=== PATIENT | female | born 1940 | race Caucasian/White ===

== ENCOUNTER 2016-07-11 13:01 | Outpatient (RCR) | payer MEDICARE ==
[~2016-07-11] VITALS: Ht 170.2 cm; Wt 111.6 kg
[2016-07-14] MEDS ORDERED: Neosporin Oint 15gm TOPIC ONE (13:45)
[2016-07-14] MEDS ORDERED: Lidocaine 4% Top Soln 50ml TOPIC ONE (13:45)
[2016-07-20] MEDS ORDERED: Lidocaine HCl 2% Jelly 5ml Tube TOPIC ONE (16:45)
[2016-07-27] MEDS ORDERED: Lidocaine 4% Top Soln 50ml TOPIC ONE (16:30)
== END 2016-08-08 | disposition home or self-care (01) ==
LOC: WCC 13:01
DX: L97.821 Non-pressure chronic ulcer of other part of left lower leg limited to breakdown of skin (principal); R60.0 Localized edema; I73.89 Other specified peripheral vascular diseases; Z79.02 Long term (current) use of antithrombotics/antiplatelets; Z88.0 Allergy status to penicillin
CPT/HCPCS: 11043; 15271; G0463; Q4133

== ENCOUNTER 2016-08-29 13:58 | Outpatient (RCR) | payer MEDICARE | END 2016-09-05 | disposition home or self-care (01) | LOC: WCC 13:58 | DX: L97.821 Non-pressure chronic ulcer of other part of left lower leg limited to breakdown of skin (principal); R60.0 Localized edema; I73.89 Other specified peripheral vascular diseases; Z79.02 Long term (current) use of antithrombotics/antiplatelets; Z88.0 Allergy status to penicillin | CPT/HCPCS: 11043 ==

== ENCOUNTER 2016-09-19 13:22 | Outpatient (RCR) | payer MEDICARE | END 2016-10-06 | disposition home or self-care (01) | LOC: WCC 13:22 | DX: L97.821 Non-pressure chronic ulcer of other part of left lower leg limited to breakdown of skin (principal); R60.0 Localized edema; I73.89 Other specified peripheral vascular diseases; Z88.0 Allergy status to penicillin; C34.90 Malignant neoplasm of unspecified part of unspecified bronchus or lung; Z79.02 Long term (current) use of antithrombotics/antiplatelets | CPT/HCPCS: 11043 ==

== ENCOUNTER 2016-10-10 13:30 | Outpatient (RCR) | payer MEDICARE ==
[~2016-10-10] VITALS: Ht 170.2 cm; Wt 111.6 kg
[2016-11-02] MEDS ORDERED: Lidocaine HCl 2% Jelly 5ml Tube TOPIC ONE (11:30)
== END 2016-11-05 | disposition home or self-care (01) ==
LOC: WCC 13:30
DX: L97.821 Non-pressure chronic ulcer of other part of left lower leg limited to breakdown of skin (principal); R60.0 Localized edema; I73.89 Other specified peripheral vascular diseases; Z88.0 Allergy status to penicillin; M48.00 Spinal stenosis, site unspecified; M19.90 Unspecified osteoarthritis, unspecified site; K21.9 Gastro-esophageal reflux disease without esophagitis; Z85.118 Personal history of other malignant neoplasm of bronchus and lung; Z79.02 Long term (current) use of antithrombotics/antiplatelets
CPT/HCPCS: 11042; 11043

== ENCOUNTER 2016-11-07 12:58 | Outpatient (RCR) | payer MEDICARE | END 2016-12-06 | disposition home or self-care (01) | LOC: WCC 12:58 | DX: L97.821 Non-pressure chronic ulcer of other part of left lower leg limited to breakdown of skin (principal); R60.0 Localized edema; I73.89 Other specified peripheral vascular diseases; Z96.643 Presence of artificial hip joint, bilateral; M48.00 Spinal stenosis, site unspecified; K21.9 Gastro-esophageal reflux disease without esophagitis; Z85.118 Personal history of other malignant neoplasm of bronchus and lung; M19.90 Unspecified osteoarthritis, unspecified site; Z88.0 Allergy status to penicillin; Z79.02 Long term (current) use of antithrombotics/antiplatelets | CPT/HCPCS: 11042; G0463 ==

== ENCOUNTER 2016-12-12 13:30 | Outpatient (RCR) | payer MEDICARE | END 2017-01-05 | disposition home or self-care (01) | LOC: WCC 13:30 | DX: L97.821 Non-pressure chronic ulcer of other part of left lower leg limited to breakdown of skin (principal); R60.0 Localized edema; I73.89 Other specified peripheral vascular diseases; Z96.643 Presence of artificial hip joint, bilateral; Z90.710 Acquired absence of both cervix and uterus; K21.9 Gastro-esophageal reflux disease without esophagitis; Z85.118 Personal history of other malignant neoplasm of bronchus and lung; M19.90 Unspecified osteoarthritis, unspecified site; M48.00 Spinal stenosis, site unspecified; Z79.02 Long term (current) use of antithrombotics/antiplatelets | CPT/HCPCS: G0463 ==

== ENCOUNTER 2017-03-27 14:09 | Outpatient (RCR) | payer MEDICARE | END 2017-04-07 | disposition home or self-care (01) | LOC: WCC 14:09 | DX: S81.802D Unspecified open wound, left lower leg, subsequent encounter (principal); X58.XXXD Exposure to other specified factors, subsequent encounter; K21.9 Gastro-esophageal reflux disease without esophagitis; Z85.118 Personal history of other malignant neoplasm of bronchus and lung; M48.00 Spinal stenosis, site unspecified; F32.9 Major depressive disorder, single episode, unspecified; Z88.0 Allergy status to penicillin | CPT/HCPCS: 11043 ==

== ENCOUNTER 2017-04-10 15:00 | Outpatient (RCR) | payer MEDICARE | END 2017-05-08 | disposition home or self-care (01) | LOC: WCC 15:00 | DX: S81.802A Unspecified open wound, left lower leg, initial encounter (principal); L97.929 Non-pressure chronic ulcer of unspecified part of left lower leg with unspecified severity; Z96.643 Presence of artificial hip joint, bilateral; Z90.710 Acquired absence of both cervix and uterus; M48.00 Spinal stenosis, site unspecified; M19.90 Unspecified osteoarthritis, unspecified site; K21.9 Gastro-esophageal reflux disease without esophagitis; C34.90 Malignant neoplasm of unspecified part of unspecified bronchus or lung; F32.9 Major depressive disorder, single episode, unspecified; Z88.0 Allergy status to penicillin | CPT/HCPCS: 11043; 29580; 87070; 87181; 87205; G0463 ==

== ENCOUNTER 2017-05-15 13:38 | Outpatient (RCR) | payer MEDICARE ==
[~2017-05-15] VITALS: Ht 170.2 cm; Wt 111.6 kg
== END 2017-06-07 | disposition home or self-care (01) ==
LOC: WCC 13:38
DX: L97.821 Non-pressure chronic ulcer of other part of left lower leg limited to breakdown of skin (principal); R60.0 Localized edema; I70.242 Atherosclerosis of native arteries of left leg with ulceration of calf; Z88.0 Allergy status to penicillin; Z88.8 Allergy status to other drugs, medicaments and biological substances; Z82.49 Family history of ischemic heart disease and other diseases of the circulatory system; Z82.3 Family history of stroke; Z87.891 Personal history of nicotine dependence; M19.90 Unspecified osteoarthritis, unspecified site; F32.9 Major depressive disorder, single episode, unspecified; K21.9 Gastro-esophageal reflux disease without esophagitis; Z85.118 Personal history of other malignant neoplasm of bronchus and lung
CPT/HCPCS: 11043; G0463

== ENCOUNTER 2017-06-12 12:57 | Outpatient (RCR) | payer MEDICARE ==
--- NOTE | 2017-06-12 16:30 | Consultation ---
DATE OF CONSULTATION: 06/12/2017 INFECTIOUS DISEASE CONSULTATION CONSULTING PHYSICIAN: Merary Mckenzie M.D. REQUESTING PHYSICIAN: Pedro Luis Dickey D.P.M. REASON FOR CONSULTATION: Left leg chronic nonhealing arterial wounds, infected with methicillin-sensitive Staph aureus, failed Levaquin antibiotics treatment. Recommendation for antibiotics therapy and further care. HISTORY OF PRESENT ILLNESS: The patient is a 77-year-old female with significant vascular disease mainly left leg popliteal occlusion status post revascularization last year by vascular surgery, spinal stenosis, joint disease, osteoarthritis, depression, and lung cancer, on biological treatment developed left leg lateral wound, which has been since March. She had this wound previously when she had her popliteal artery occlusion, but it has improved since she had her revascularization procedure last year. Since March, her left leg wound has been getting bigger and has some yellowish exudate. Her skin seems to be red erythematous involving the whole legs mainly around the left leg wound area. She attributed to local Lysol chemical spray which she was exposed to couple of months ago. Denied any pain. No fever or chills. No significant drainage from the wound. She is able to walk and put full weight on her left leg. The patient had a wound culture recently, grew methicillin-sensitive Staph aureus and normal skin carmella, so she received Levaquin 500 mg for 10 days with no significant improvement in her wound, so for this reason, I was consulted by the authorization coordinator for antibiotics treatment and further management of her left leg wound infection. PAST MEDICAL HISTORY: Significant for spinal stenosis, vascular arterial disease, venous stasis, joint disease, osteoarthritis, depression, gastroesophageal reflux disease, and lung cancer. PAST SURGICAL HISTORY: She had revascularization of the left leg popliteal artery last year by vascular surgery. MEDICATIONS: The patient received Levaquin 500 mg once daily for 10 days. For the rest of her medications, please refer to MAR. ALLERGIES: She is allergic to penicillin with hives, rash, and significant sore throat. SOCIAL HISTORY: She is unemployed. Lives with family. Denied using any drugs, tobacco, or alcohol. FAMILY HISTORY: Not contributory. REVIEW OF SYSTEMS: A 14-point of system reviewed were all negative apart from the one I mentioned above in my History and Physical. PHYSICAL EXAMINATION: VITAL SIGNS: Reviewed and stable. GENERAL: An elderly female, lying in bed, awake, alert, oriented, obese, and not in distress. HEENT: Normocephalic and atraumatic. Pupils are reactive to light. Moist oral mucosa. No exudate or thrush. NECK: Supple. No lymphadenopathy. CARDIOVASCULAR: Regular rate and rhythm. No murmur or gallop. LUNGS: Clear bilaterally. No wheezing or rhonchi. Normal breathing efforts. ABDOMEN: Soft, obese, nontender, and nondistended. Positive bowel sounds. No hepatosplenomegaly or ascites. EXTREMITY: No edema or cyanosis. Left leg redness with left lateral side skin wound, full thickness, 3.6 x 2.6 x 0.2 cm depth. No undermining. Moderate amount of serosanguineous drainage noted. LABORATORY DATA: Laboratories are not available today. MICROBIOLOGY: Left leg wound culture grew MSSA with usual skin carmella. IMAGING: None done at this time. ASSESSMENT AND RECOMMENDATION: 1. Left leg nonhealing arterial wound, suspect due to poor circulation and significant arterial disease. I recommend vascular study with Doppler and possible revascularization to improve her chance of healing. Meanwhile, I will start the patient on oral clindamycin for 10 days until she get evaluated by vascular surgery. We will add fluconazole to cover for possible fungal infection since she has onychomycosis in both feet and evidence of skin fungal involvement. The patient understands that oral antibiotics may not improve her infection or heal her wound due to significant arterial disease and thus she gets vascular intervention done to restore the circulation. All side effects were explained and she agreed to proceed. 2. Significant peripheral vascular disease. Recommend vascular evaluation and revascularization if needed to improve her chance of recovery in the future. Thank you for the consultation. Infectious Disease will continue to follow. Please feel free to call with any question. Merary Mckenzie M.D. DR: DOM JOB#: [id number] CC:
--- NOTE | 2017-06-26 15:14 | Infectious Diseases Prog Note ---
Assessment/Plan Problems: (1) Peripheral vascular disease of lower extremity with ulceration Assessment & Plan: wound swab grew MSSA , patient was treated recently with Levaquin without benefit , she didn't take clindamycin as I prescribed due to side effects , arterial Doppler showed moderate to severe stenosis at the mid popliteal artery which is most likely the cause of her nonhealing wound , recommend arterial revascularization , and continuous wound care . D/W patient and at bed side (2) Peripheral vascular disease Assessment & Plan: at the left popliteal artery, recommend revascularization , and vascular surgery follow up Subjective Constitutional: Reports: no symptoms HEENT: Reports: no symptoms Respiratory: Reports: no symptoms Breasts: Reports: no symptoms Cardiovascular: Reports: no symptoms Gastrointestinal/Abdominal: Reports: diarrhea Genitourinary: Reports: no symptoms Neurologic: Reports: no symptoms Psychiatric: Reports: no symptoms Skin: Reports: ulcer Endocrine: Reports: no symptoms Hematologic: Reports: no symptoms Musculoskeletal: Reports: no symptoms Allergies: Coded Allergies: PENICILLINS (Verified Allergy, Unknown, 07/30/15) Objective General Appearance: WD/WN, no acute distress HEENT: normocephalic, atraumatic, anicteric, mucous membranes moist, PERRL Respiratory/Chest: chest wall non-tender, lungs clear, normal breath sounds, no respiratory distress, no accessory muscle use Cardiovascular: normal peripheral pulses, normal rate, regular rhythm, no gallop/murmur, no JVD Abdomen: normal bowel sounds, soft, non tender, no organomegaly, non distended , no mass, no scars Extremities: no cyanosis, no clubbing Skin: rash, ulcers, other - left lateral leg wound Neurologic/Psychiatric: alert, oriented x 3 Lymphatic: no neck adenopathy, no groin adenopathy Musculoskeletal: normal muscle bulk Merary Mckenzie M.D. Jun 26, 2017 15:14
== END 2017-07-08 | disposition home or self-care (01) ==
LOC: WCC 12:57
DX: L97.821 Non-pressure chronic ulcer of other part of left lower leg limited to breakdown of skin (principal); R60.0 Localized edema; I70.242 Atherosclerosis of native arteries of left leg with ulceration of calf; Z96.643 Presence of artificial hip joint, bilateral; Z90.710 Acquired absence of both cervix and uterus; Z85.118 Personal history of other malignant neoplasm of bronchus and lung; K21.9 Gastro-esophageal reflux disease without esophagitis; F32.9 Major depressive disorder, single episode, unspecified; M19.90 Unspecified osteoarthritis, unspecified site; Z79.02 Long term (current) use of antithrombotics/antiplatelets
CPT/HCPCS: G0463 ×3

== ENCOUNTER 2017-07-24 13:17 | Outpatient (RCR) | payer MEDICARE ==
[~2017-07-24] VITALS: Ht 170.2 cm; Wt 111.6 kg
[2017-08-02] MEDS ORDERED: Lidocaine 4% Top Soln 50ml TOPIC ONE (15:01)
== END 2017-08-08 | disposition home or self-care (01) ==
LOC: WCC 13:17
DX: L97.821 Non-pressure chronic ulcer of other part of left lower leg limited to breakdown of skin (principal); R60.0 Localized edema; I70.242 Atherosclerosis of native arteries of left leg with ulceration of calf; K21.9 Gastro-esophageal reflux disease without esophagitis; F32.9 Major depressive disorder, single episode, unspecified; Z85.118 Personal history of other malignant neoplasm of bronchus and lung; Z96.643 Presence of artificial hip joint, bilateral; Z90.710 Acquired absence of both cervix and uterus; Z87.891 Personal history of nicotine dependence; Z88.0 Allergy status to penicillin; Z88.8 Allergy status to other drugs, medicaments and biological substances; Z79.02 Long term (current) use of antithrombotics/antiplatelets
CPT/HCPCS: G0463

== ENCOUNTER 2017-08-09 12:49 | Outpatient (RCR) | payer MEDICARE | END 2017-09-05 | disposition home or self-care (01) | LOC: WCC 12:49 | DX: L97.821 Non-pressure chronic ulcer of other part of left lower leg limited to breakdown of skin (principal); R60.0 Localized edema; I70.242 Atherosclerosis of native arteries of left leg with ulceration of calf; Z88.0 Allergy status to penicillin; Z88.8 Allergy status to other drugs, medicaments and biological substances; Z96.643 Presence of artificial hip joint, bilateral; Z90.710 Acquired absence of both cervix and uterus; M19.90 Unspecified osteoarthritis, unspecified site; F32.9 Major depressive disorder, single episode, unspecified; K21.9 Gastro-esophageal reflux disease without esophagitis; Z85.118 Personal history of other malignant neoplasm of bronchus and lung; M48.00 Spinal stenosis, site unspecified; Z79.02 Long term (current) use of antithrombotics/antiplatelets | CPT/HCPCS: 11043; 11046; 87070; 87205; G0463 ==

== ENCOUNTER 2017-09-11 13:09 | Outpatient (RCR) | payer MEDICARE ==
[~2017-09-11] VITALS: Ht 170.2 cm; Wt 111.6 kg
== END 2017-10-06 | disposition home or self-care (01) ==
LOC: WCC 13:09
DX: L97.821 Non-pressure chronic ulcer of other part of left lower leg limited to breakdown of skin (principal); R60.0 Localized edema; I70.242 Atherosclerosis of native arteries of left leg with ulceration of calf; L03.116 Cellulitis of left lower limb; Z96.643 Presence of artificial hip joint, bilateral; Z90.710 Acquired absence of both cervix and uterus; Z87.891 Personal history of nicotine dependence; F32.9 Major depressive disorder, single episode, unspecified; Z85.118 Personal history of other malignant neoplasm of bronchus and lung; M48.00 Spinal stenosis, site unspecified; Z79.02 Long term (current) use of antithrombotics/antiplatelets
CPT/HCPCS: 11043; 11046; 15002; 15271; 15272; 87070; 87181; 87205; Q4106; Q4101

== ENCOUNTER 2017-10-09 10:57 | Outpatient (RCR) | payer MEDICARE ==
[~2017-10-09] VITALS: Ht 165.1 cm; Wt 113.4 kg
[2017-10-18] MEDS ORDERED: Lidocaine 4% Top Soln 50ml TOPIC ONE (11:30)
== END 2017-11-05 | disposition home or self-care (01) ==
LOC: WCC 10:57
DX: L97.821 Non-pressure chronic ulcer of other part of left lower leg limited to breakdown of skin (principal); R60.0 Localized edema; I70.242 Atherosclerosis of native arteries of left leg with ulceration of calf; Z88.0 Allergy status to penicillin; Z88.8 Allergy status to other drugs, medicaments and biological substances; Z90.710 Acquired absence of both cervix and uterus; Z96.643 Presence of artificial hip joint, bilateral; K21.9 Gastro-esophageal reflux disease without esophagitis; Z85.118 Personal history of other malignant neoplasm of bronchus and lung; F32.9 Major depressive disorder, single episode, unspecified; M19.90 Unspecified osteoarthritis, unspecified site; Z79.02 Long term (current) use of antithrombotics/antiplatelets
CPT/HCPCS: 11043; 11046; 87070; 87181; 87205

== ENCOUNTER 2017-11-06 10:10 | Outpatient (RCR) | payer MEDICARE ==
[~2017-11-06] VITALS: Ht 170.2 cm; Wt 111.6 kg
[2017-11-22] MEDS ORDERED: Lidocaine 4% Top Soln 50ml TOPIC ONE (16:45)
== END 2017-12-06 | disposition home or self-care (01) ==
LOC: WCC 10:10
DX: L97.821 Non-pressure chronic ulcer of other part of left lower leg limited to breakdown of skin (principal); R60.0 Localized edema; I70.242 Atherosclerosis of native arteries of left leg with ulceration of calf; Z96.643 Presence of artificial hip joint, bilateral; Z90.710 Acquired absence of both cervix and uterus; K21.9 Gastro-esophageal reflux disease without esophagitis; Z85.118 Personal history of other malignant neoplasm of bronchus and lung; F32.9 Major depressive disorder, single episode, unspecified; Z87.891 Personal history of nicotine dependence; Z79.02 Long term (current) use of antithrombotics/antiplatelets; Z88.0 Allergy status to penicillin
CPT/HCPCS: 11043; 11046

== ENCOUNTER 2018-01-08 12:56 | Outpatient (RCR) | payer MEDICARE ==
[~2018-01-08] VITALS: Ht 193 cm; Wt 113.4 kg
[2018-02-05] MEDS ORDERED: Lidocaine 4% Top Soln 50ml TOPIC ONE (17:30)
== END 2018-02-05 | disposition home or self-care (01) ==
LOC: WCC 12:56
DX: L97.821 Non-pressure chronic ulcer of other part of left lower leg limited to breakdown of skin (principal); R60.0 Localized edema; I70.242 Atherosclerosis of native arteries of left leg with ulceration of calf; Z88.0 Allergy status to penicillin; Z88.8 Allergy status to other drugs, medicaments and biological substances; Z87.891 Personal history of nicotine dependence; M19.90 Unspecified osteoarthritis, unspecified site; F32.9 Major depressive disorder, single episode, unspecified; K21.9 Gastro-esophageal reflux disease without esophagitis; Z85.118 Personal history of other malignant neoplasm of bronchus and lung; Z96.643 Presence of artificial hip joint, bilateral; Z90.710 Acquired absence of both cervix and uterus; Z79.02 Long term (current) use of antithrombotics/antiplatelets
CPT/HCPCS: 11043; 11046; 15271; Q4132

== ENCOUNTER 2018-02-07 15:40 | Outpatient (RCR) | payer MEDICARE | END 2018-03-08 | disposition home or self-care (01) | LOC: WCC 15:40 | DX: L97.821 Non-pressure chronic ulcer of other part of left lower leg limited to breakdown of skin (principal); R60.0 Localized edema; I70.242 Atherosclerosis of native arteries of left leg with ulceration of calf; K21.9 Gastro-esophageal reflux disease without esophagitis; Z85.118 Personal history of other malignant neoplasm of bronchus and lung; F32.9 Major depressive disorder, single episode, unspecified; Z96.643 Presence of artificial hip joint, bilateral; Z90.710 Acquired absence of both cervix and uterus; Z87.891 Personal history of nicotine dependence; Z79.02 Long term (current) use of antithrombotics/antiplatelets | CPT/HCPCS: 11043; 11046 ==

== ENCOUNTER 2018-03-12 14:05 | Outpatient (RCR) | payer MEDICARE ==
[~2018-03-12] VITALS: Ht 193 cm; Wt 113.4 kg
== END 2018-04-07 | disposition home or self-care (01) ==
LOC: WCC 14:05
DX: L97.821 Non-pressure chronic ulcer of other part of left lower leg limited to breakdown of skin (principal); R60.0 Localized edema; I70.242 Atherosclerosis of native arteries of left leg with ulceration of calf; Z85.118 Personal history of other malignant neoplasm of bronchus and lung; M19.90 Unspecified osteoarthritis, unspecified site; Z87.891 Personal history of nicotine dependence; Z96.643 Presence of artificial hip joint, bilateral; Z90.710 Acquired absence of both cervix and uterus
CPT/HCPCS: 11043; 11046; 15271; Q4131; Q4133

== ENCOUNTER 2018-04-09 13:32 | Outpatient (RCR) | payer MEDICARE | END 2018-05-08 | disposition home or self-care (01) | LOC: WCC 13:32 | DX: L97.821 Non-pressure chronic ulcer of other part of left lower leg limited to breakdown of skin (principal); R60.0 Localized edema; I70.242 Atherosclerosis of native arteries of left leg with ulceration of calf; L03.116 Cellulitis of left lower limb; Z88.0 Allergy status to penicillin; Z96.643 Presence of artificial hip joint, bilateral; Z90.710 Acquired absence of both cervix and uterus; K21.9 Gastro-esophageal reflux disease without esophagitis; F32.9 Major depressive disorder, single episode, unspecified; Z85.118 Personal history of other malignant neoplasm of bronchus and lung; M19.90 Unspecified osteoarthritis, unspecified site; Z79.01 Long term (current) use of anticoagulants | CPT/HCPCS: 11043; 11046; G0463 ==

== ENCOUNTER 2018-05-14 12:42 | Outpatient (RCR) | payer MEDICARE ==
[~2018-05-14] VITALS: Ht 193 cm; Wt 113.4 kg
[2018-05-29] MEDS ORDERED: Lidocaine 4% Top Soln 50ml TOPIC ONE (11:00)
== END 2018-06-07 | disposition home or self-care (01) ==
LOC: WCC 12:42
DX: L97.821 Non-pressure chronic ulcer of other part of left lower leg limited to breakdown of skin (principal); R60.0 Localized edema; I70.242 Atherosclerosis of native arteries of left leg with ulceration of calf; Z88.0 Allergy status to penicillin; Z88.8 Allergy status to other drugs, medicaments and biological substances; Z96.643 Presence of artificial hip joint, bilateral; Z90.710 Acquired absence of both cervix and uterus; K21.9 Gastro-esophageal reflux disease without esophagitis; F32.9 Major depressive disorder, single episode, unspecified; M19.90 Unspecified osteoarthritis, unspecified site; Z85.118 Personal history of other malignant neoplasm of bronchus and lung; Z79.01 Long term (current) use of anticoagulants
CPT/HCPCS: 11043; 11046; 15271; 15272; Q4106; Q4101

== ENCOUNTER 2018-06-11 13:32 | Outpatient (RCR) | payer MEDICARE ==
[~2018-06-11] VITALS: Ht 193 cm; Wt 113.4 kg
== END 2018-07-08 | disposition home or self-care (01) ==
LOC: WCC 13:32
DX: L97.821 Non-pressure chronic ulcer of other part of left lower leg limited to breakdown of skin (principal); R60.0 Localized edema; I70.242 Atherosclerosis of native arteries of left leg with ulceration of calf; Z88.0 Allergy status to penicillin; Z96.643 Presence of artificial hip joint, bilateral; Z90.710 Acquired absence of both cervix and uterus; K21.9 Gastro-esophageal reflux disease without esophagitis; Z85.118 Personal history of other malignant neoplasm of bronchus and lung; F32.9 Major depressive disorder, single episode, unspecified; M19.90 Unspecified osteoarthritis, unspecified site; Z79.01 Long term (current) use of anticoagulants
CPT/HCPCS: 11043; 11046; 87070; 87181; 87205; G0463

== ENCOUNTER 2018-07-16 13:55 | Outpatient (RCR) | payer MEDICARE ==
[~2018-07-16] VITALS: Ht 193 cm; Wt 113.4 kg
[2018-08-02] MEDS ORDERED: Neosporin Oint 15gm TOPIC ONE (09:15)
== END 2018-08-08 | disposition home or self-care (01) ==
LOC: WCC 13:55
DX: L97.821 Non-pressure chronic ulcer of other part of left lower leg limited to breakdown of skin (principal); R60.0 Localized edema; I70.242 Atherosclerosis of native arteries of left leg with ulceration of calf; L03.116 Cellulitis of left lower limb; Z96.643 Presence of artificial hip joint, bilateral; Z90.710 Acquired absence of both cervix and uterus; K21.9 Gastro-esophageal reflux disease without esophagitis; Z85.118 Personal history of other malignant neoplasm of bronchus and lung; M19.90 Unspecified osteoarthritis, unspecified site; F32.9 Major depressive disorder, single episode, unspecified; M48.00 Spinal stenosis, site unspecified
CPT/HCPCS: 15002; 15271; 15272; G0463; Q4106; Q4101

== ENCOUNTER 2018-08-13 13:15 | Outpatient (RCR) | payer MEDICARE ==
[~2018-08-13] VITALS: Ht 193 cm; Wt 113.4 kg
== END 2018-09-05 | disposition home or self-care (01) ==
LOC: WCC 13:15
DX: L97.821 Non-pressure chronic ulcer of other part of left lower leg limited to breakdown of skin (principal); R60.0 Localized edema; I70.242 Atherosclerosis of native arteries of left leg with ulceration of calf; Z96.643 Presence of artificial hip joint, bilateral; Z90.710 Acquired absence of both cervix and uterus; Z85.118 Personal history of other malignant neoplasm of bronchus and lung; K21.9 Gastro-esophageal reflux disease without esophagitis; F32.9 Major depressive disorder, single episode, unspecified; M19.90 Unspecified osteoarthritis, unspecified site; M48.00 Spinal stenosis, site unspecified; Z87.891 Personal history of nicotine dependence; Z88.0 Allergy status to penicillin; Z88.8 Allergy status to other drugs, medicaments and biological substances; Z79.01 Long term (current) use of anticoagulants
CPT/HCPCS: 11043; 15271; G0463; Q4106; Q4101

== ENCOUNTER 2018-09-17 13:15 | Outpatient (RCR) | payer MEDICARE | END 2018-10-06 | disposition home or self-care (01) | LOC: WCC 13:15 | DX: L97.821 Non-pressure chronic ulcer of other part of left lower leg limited to breakdown of skin (principal); R60.0 Localized edema; I70.242 Atherosclerosis of native arteries of left leg with ulceration of calf; K21.9 Gastro-esophageal reflux disease without esophagitis; F32.9 Major depressive disorder, single episode, unspecified; M19.90 Unspecified osteoarthritis, unspecified site; Z96.643 Presence of artificial hip joint, bilateral; Z90.710 Acquired absence of both cervix and uterus; Z87.891 Personal history of nicotine dependence; Z79.01 Long term (current) use of anticoagulants | CPT/HCPCS: 15271; G0463; Q4106; Q4101 ==

== ENCOUNTER 2018-10-08 13:12 | Outpatient (RCR) | payer MEDICARE ==
[~2018-10-08] VITALS: Ht 193 cm; Wt 113.4 kg
== END 2018-11-05 | disposition home or self-care (01) ==
LOC: WCC 13:12
DX: L97.821 Non-pressure chronic ulcer of other part of left lower leg limited to breakdown of skin (principal); R60.0 Localized edema; I70.242 Atherosclerosis of native arteries of left leg with ulceration of calf; L03.116 Cellulitis of left lower limb; Z88.0 Allergy status to penicillin; Z88.8 Allergy status to other drugs, medicaments and biological substances; Z96.643 Presence of artificial hip joint, bilateral; Z90.710 Acquired absence of both cervix and uterus; Z85.118 Personal history of other malignant neoplasm of bronchus and lung; K21.9 Gastro-esophageal reflux disease without esophagitis; F32.9 Major depressive disorder, single episode, unspecified; M19.90 Unspecified osteoarthritis, unspecified site; Z79.01 Long term (current) use of anticoagulants
CPT/HCPCS: 11043; 11046; 15271; G0463; Q4106; Q4101

== ENCOUNTER 2018-11-12 12:17 | Outpatient (RCR) | payer MEDICARE ==
[~2018-11-12] VITALS: Ht 193 cm; Wt 113.4 kg
[2018-11-15] MEDS ORDERED: Lidocaine 4% Top Soln 50ml TOPIC ONE (12:15)
== END 2018-12-06 | disposition home or self-care (01) ==
LOC: WCC 12:17
DX: L97.821 Non-pressure chronic ulcer of other part of left lower leg limited to breakdown of skin (principal); R60.0 Localized edema; I70.242 Atherosclerosis of native arteries of left leg with ulceration of calf; Z88.0 Allergy status to penicillin; Z88.8 Allergy status to other drugs, medicaments and biological substances; Z85.118 Personal history of other malignant neoplasm of bronchus and lung; Z87.891 Personal history of nicotine dependence; Z96.643 Presence of artificial hip joint, bilateral; Z90.710 Acquired absence of both cervix and uterus; M19.90 Unspecified osteoarthritis, unspecified site; F32.9 Major depressive disorder, single episode, unspecified; K21.9 Gastro-esophageal reflux disease without esophagitis; Z79.01 Long term (current) use of anticoagulants; Z79.899 Other long term (current) drug therapy
CPT/HCPCS: 15271; G0463; Q4106; Q4101

== ENCOUNTER 2018-12-10 08:55 | Outpatient (RCR) | payer MEDICARE | END 2019-01-05 | disposition home or self-care (01) | LOC: WCC 08:55 | DX: L97.821 Non-pressure chronic ulcer of other part of left lower leg limited to breakdown of skin (principal); R60.0 Localized edema; I70.242 Atherosclerosis of native arteries of left leg with ulceration of calf; Z96.643 Presence of artificial hip joint, bilateral; Z90.710 Acquired absence of both cervix and uterus; K21.9 Gastro-esophageal reflux disease without esophagitis; M19.90 Unspecified osteoarthritis, unspecified site; Z85.118 Personal history of other malignant neoplasm of bronchus and lung; M48.00 Spinal stenosis, site unspecified; Z79.01 Long term (current) use of anticoagulants; Z79.899 Other long term (current) drug therapy | CPT/HCPCS: 11043; 11046; G0463 ==

== ENCOUNTER 2019-01-07 12:02 | Outpatient (RCR) | payer MEDICARE | END 2019-02-05 | disposition home or self-care (01) | LOC: WCC 12:02 | DX: L97.821 Non-pressure chronic ulcer of other part of left lower leg limited to breakdown of skin (principal); R60.0 Localized edema; I70.242 Atherosclerosis of native arteries of left leg with ulceration of calf; L03.116 Cellulitis of left lower limb; Z90.710 Acquired absence of both cervix and uterus; Z87.891 Personal history of nicotine dependence; Z88.0 Allergy status to penicillin; M19.90 Unspecified osteoarthritis, unspecified site; K21.9 Gastro-esophageal reflux disease without esophagitis; Z85.118 Personal history of other malignant neoplasm of bronchus and lung; F32.9 Major depressive disorder, single episode, unspecified; Z79.01 Long term (current) use of anticoagulants; Z79.899 Other long term (current) drug therapy | CPT/HCPCS: 11043; 11046; G0463 ==

== ENCOUNTER 2019-01-07 14:31 | Outpatient (CLI) | payer MEDICARE ==
--- NOTE | 2019-01-07 15:35 | Diagnostic Imaging Report ---
Indication: left ankle pain Comparison: None Findings: 3 views of the left ankle obtained. There is soft tissue swelling present in a diffuse fashion. The bones are severely osteopenic. There is periosteal reaction along the shafts of the tibia and fibula which is nonspecific. There is no obvious acute fracture. There is no obvious malalignment. IMPRESSION: Periosteal reaction, nonspecific. Generalized soft tissue swelling. No obvious fracture or plain film signs of osteomyelitis.
== END 2019-01-07 16:31 | disposition home or self-care (01) ==
LOC: RAD 14:31
DX: S91.002A Unspecified open wound, left ankle, initial encounter (principal); M25.572 Pain in left ankle and joints of left foot; X58.XXXA Exposure to other specified factors, initial encounter; Y92.9 Unspecified place or not applicable

== ENCOUNTER 2019-02-11 08:36 | Outpatient (RCR) | payer MEDICARE | END 2019-03-08 | disposition home or self-care (01) | LOC: WCC 08:36 | DX: L97.821 Non-pressure chronic ulcer of other part of left lower leg limited to breakdown of skin (principal); R60.0 Localized edema; I70.242 Atherosclerosis of native arteries of left leg with ulceration of calf; Z88.0 Allergy status to penicillin; Z88.8 Allergy status to other drugs, medicaments and biological substances; Z96.643 Presence of artificial hip joint, bilateral; Z90.710 Acquired absence of both cervix and uterus; K21.9 Gastro-esophageal reflux disease without esophagitis; F32.9 Major depressive disorder, single episode, unspecified; M19.90 Unspecified osteoarthritis, unspecified site; Z85.118 Personal history of other malignant neoplasm of bronchus and lung; Z79.01 Long term (current) use of anticoagulants; Z79.899 Other long term (current) drug therapy | CPT/HCPCS: 11043; 11046; 87070; 87181; 87205; G0463 ==

== ENCOUNTER 2019-03-11 08:44 | Outpatient (RCR) | payer MEDICARE | END 2019-04-07 | disposition home or self-care (01) | LOC: WCC 08:44 | DX: L97.829 Non-pressure chronic ulcer of other part of left lower leg with unspecified severity (principal); Z88.0 Allergy status to penicillin; Z88.8 Allergy status to other drugs, medicaments and biological substances; Z96.643 Presence of artificial hip joint, bilateral; Z90.710 Acquired absence of both cervix and uterus; K21.9 Gastro-esophageal reflux disease without esophagitis; M19.90 Unspecified osteoarthritis, unspecified site; F32.9 Major depressive disorder, single episode, unspecified; Z79.01 Long term (current) use of anticoagulants | CPT/HCPCS: 11043; 11046; 15271; G0463; Q4106; Q4101 ==

== ENCOUNTER 2019-04-08 10:22 | Outpatient (RCR) | payer MEDICARE | END 2019-05-08 | disposition home or self-care (01) | LOC: WCC 10:22 | DX: L97.821 Non-pressure chronic ulcer of other part of left lower leg limited to breakdown of skin (principal); R60.0 Localized edema; I70.242 Atherosclerosis of native arteries of left leg with ulceration of calf; Z96.643 Presence of artificial hip joint, bilateral; Z90.710 Acquired absence of both cervix and uterus; Z87.891 Personal history of nicotine dependence; Z88.0 Allergy status to penicillin; M19.90 Unspecified osteoarthritis, unspecified site; F32.9 Major depressive disorder, single episode, unspecified; K21.9 Gastro-esophageal reflux disease without esophagitis; Z85.118 Personal history of other malignant neoplasm of bronchus and lung; Z79.899 Other long term (current) drug therapy; Z79.01 Long term (current) use of anticoagulants | CPT/HCPCS: 11043; 11046; 15271; G0463; Q4106; Q4101 ==

== ENCOUNTER 2019-05-13 13:36 | Outpatient (RCR) | payer MEDICARE ==
[~2019-05-13] VITALS: Ht 175.3 cm; Wt 113.4 kg
== END 2019-06-07 | disposition home or self-care (01) ==
LOC: WCC 13:36
DX: L97.821 Non-pressure chronic ulcer of other part of left lower leg limited to breakdown of skin (principal); R60.0 Localized edema; I70.242 Atherosclerosis of native arteries of left leg with ulceration of calf; Z88.0 Allergy status to penicillin; Z85.118 Personal history of other malignant neoplasm of bronchus and lung; Z96.643 Presence of artificial hip joint, bilateral; Z90.710 Acquired absence of both cervix and uterus; K21.9 Gastro-esophageal reflux disease without esophagitis; F32.9 Major depressive disorder, single episode, unspecified; M19.90 Unspecified osteoarthritis, unspecified site; Z79.899 Other long term (current) drug therapy
CPT/HCPCS: 11043; 11046; G0463

== ENCOUNTER 2019-06-10 12:00 | Outpatient (RCR) | payer MEDICARE | END 2019-07-08 | disposition home or self-care (01) | LOC: WCC 12:00 | DX: L97.821 Non-pressure chronic ulcer of other part of left lower leg limited to breakdown of skin (principal); R60.0 Localized edema; I70.242 Atherosclerosis of native arteries of left leg with ulceration of calf; L03.116 Cellulitis of left lower limb; Z96.643 Presence of artificial hip joint, bilateral; Z90.710 Acquired absence of both cervix and uterus; Z85.118 Personal history of other malignant neoplasm of bronchus and lung; K21.9 Gastro-esophageal reflux disease without esophagitis; M19.90 Unspecified osteoarthritis, unspecified site; F32.9 Major depressive disorder, single episode, unspecified; Z88.0 Allergy status to penicillin | CPT/HCPCS: 11043; 11046; G0463 ==

== ENCOUNTER 2019-07-15 10:42 | Outpatient (RCR) | payer MEDICARE | END 2019-08-08 | disposition home or self-care (01) | LOC: WCC 10:42 | DX: L97.821 Non-pressure chronic ulcer of other part of left lower leg limited to breakdown of skin (principal); R60.0 Localized edema; I70.242 Atherosclerosis of native arteries of left leg with ulceration of calf; L03.116 Cellulitis of left lower limb; Z96.643 Presence of artificial hip joint, bilateral; K21.9 Gastro-esophageal reflux disease without esophagitis; Z85.118 Personal history of other malignant neoplasm of bronchus and lung; F32.9 Major depressive disorder, single episode, unspecified; M19.90 Unspecified osteoarthritis, unspecified site; Z79.01 Long term (current) use of anticoagulants | CPT/HCPCS: 11043; 11046; G0463 ==

== ENCOUNTER 2019-08-12 12:31 | Outpatient (RCR) | payer MEDICARE | END 2019-09-06 | disposition home or self-care (01) | LOC: WCC 12:31 | DX: L97.821 Non-pressure chronic ulcer of other part of left lower leg limited to breakdown of skin (principal); R60.0 Localized edema; I70.242 Atherosclerosis of native arteries of left leg with ulceration of calf; L03.116 Cellulitis of left lower limb; F32.9 Major depressive disorder, single episode, unspecified; M19.90 Unspecified osteoarthritis, unspecified site; K21.9 Gastro-esophageal reflux disease without esophagitis; Z85.118 Personal history of other malignant neoplasm of bronchus and lung; Z79.01 Long term (current) use of anticoagulants | CPT/HCPCS: G0463 ×3 ==

== ENCOUNTER 2019-09-09 11:58 | Outpatient (RCR) | payer MEDICARE | END 2019-10-07 | disposition home or self-care (01) | LOC: WCC 11:58 | DX: L97.821 Non-pressure chronic ulcer of other part of left lower leg limited to breakdown of skin (principal); R60.0 Localized edema; I70.242 Atherosclerosis of native arteries of left leg with ulceration of calf; L03.116 Cellulitis of left lower limb; Z87.891 Personal history of nicotine dependence; Z96.643 Presence of artificial hip joint, bilateral; Z90.710 Acquired absence of both cervix and uterus; M19.90 Unspecified osteoarthritis, unspecified site; F32.9 Major depressive disorder, single episode, unspecified; K21.9 Gastro-esophageal reflux disease without esophagitis; Z85.118 Personal history of other malignant neoplasm of bronchus and lung; Z79.01 Long term (current) use of anticoagulants; Z79.899 Other long term (current) drug therapy; Z88.0 Allergy status to penicillin; Z88.8 Allergy status to other drugs, medicaments and biological substances | CPT/HCPCS: G0463 ==

== ENCOUNTER 2019-10-21 13:03 | Outpatient (RCR) | payer MEDICARE ==
[~2019-10-21] VITALS: Ht 213.4 cm; Wt 107.0 kg
== END 2019-11-06 | disposition home or self-care (01) ==
LOC: WCC 13:03
DX: L97.821 Non-pressure chronic ulcer of other part of left lower leg limited to breakdown of skin (principal); R60.0 Localized edema; I70.242 Atherosclerosis of native arteries of left leg with ulceration of calf; L03.115 Cellulitis of right lower limb; L97.512 Non-pressure chronic ulcer of other part of right foot with fat layer exposed; M19.90 Unspecified osteoarthritis, unspecified site; F32.9 Major depressive disorder, single episode, unspecified; K21.9 Gastro-esophageal reflux disease without esophagitis; Z85.118 Personal history of other malignant neoplasm of bronchus and lung; Z96.643 Presence of artificial hip joint, bilateral; Z90.710 Acquired absence of both cervix and uterus; Z79.01 Long term (current) use of anticoagulants; Z79.899 Other long term (current) drug therapy; Z88.0 Allergy status to penicillin; Z88.8 Allergy status to other drugs, medicaments and biological substances
CPT/HCPCS: 87070; 87181; 87205; G0463

== ENCOUNTER 2019-11-11 10:27 | Outpatient (RCR) | payer MEDICARE ==
[~2019-11-11] VITALS: Ht 167.6 cm; Wt 104.3 kg
[2019-11-19] MEDS ORDERED: Lidocaine 4% Top Soln 50ml TOPIC ONE (09:45)
== END 2019-12-07 | disposition home or self-care (01) ==
LOC: WCC 10:27
DX: L97.821 Non-pressure chronic ulcer of other part of left lower leg limited to breakdown of skin (principal); R60.0 Localized edema; I70.242 Atherosclerosis of native arteries of left leg with ulceration of calf; L03.115 Cellulitis of right lower limb; L97.512 Non-pressure chronic ulcer of other part of right foot with fat layer exposed; M19.90 Unspecified osteoarthritis, unspecified site; F32.9 Major depressive disorder, single episode, unspecified; K21.9 Gastro-esophageal reflux disease without esophagitis; Z85.118 Personal history of other malignant neoplasm of bronchus and lung; Z96.643 Presence of artificial hip joint, bilateral; Z90.710 Acquired absence of both cervix and uterus; Z79.01 Long term (current) use of anticoagulants; Z79.899 Other long term (current) drug therapy; Z88.0 Allergy status to penicillin; Z88.8 Allergy status to other drugs, medicaments and biological substances; M79.671 Pain in right foot; M79.672 Pain in left foot; L85.9 Epidermal thickening, unspecified; Z87.891 Personal history of nicotine dependence
CPT/HCPCS: 11043; 11046; 11055; 11056; G0463

== ENCOUNTER 2019-12-09 13:02 | Outpatient (RCR) | payer MEDICARE ==
[~2019-12-09] VITALS: Ht 167.6 cm; Wt 104.3 kg
[2019-12-10] MEDS ORDERED: Lidocaine 4% Top Soln 50ml TOPIC ONE (15:15)
[2019-12-31] MEDS ORDERED: Lidocaine 4% Top Soln 50ml TOPIC ONE (12:15)
[2020-01-07] MEDS ORDERED: Lidocaine 4% Top Soln 50ml TOPIC ONE (13:45)
== END 2020-01-06 | disposition home or self-care (01) ==
LOC: WCC 13:02
DX: L97.821 Non-pressure chronic ulcer of other part of left lower leg limited to breakdown of skin (principal); L97.512 Non-pressure chronic ulcer of other part of right foot with fat layer exposed; R60.0 Localized edema; I70.242 Atherosclerosis of native arteries of left leg with ulceration of calf; L03.115 Cellulitis of right lower limb; M19.90 Unspecified osteoarthritis, unspecified site; F32.9 Major depressive disorder, single episode, unspecified; K21.9 Gastro-esophageal reflux disease without esophagitis; Z85.118 Personal history of other malignant neoplasm of bronchus and lung; Z96.643 Presence of artificial hip joint, bilateral; Z90.710 Acquired absence of both cervix and uterus; Z79.01 Long term (current) use of anticoagulants; Z79.899 Other long term (current) drug therapy; Z88.0 Allergy status to penicillin; Z88.8 Allergy status to other drugs, medicaments and biological substances; M79.671 Pain in right foot
CPT/HCPCS: 11043; 11046; G0463

== ENCOUNTER 2020-01-13 13:25 | Outpatient (RCR) | payer MEDICARE ==
[~2020-01-13] VITALS: Ht 167.6 cm; Wt 104.3 kg
[~2020-01-13 13:25] MED LIST: Lidocaine 4% Top Soln 50ml TOPIC ONE
[2020-01-28] MEDS ORDERED: Lidocaine 4% Top Soln 50ml TOPIC ONE (12:45)
[2020-02-04] MEDS ORDERED: Lidocaine 4% Top Soln 50ml TOPIC ONE (09:30)
== END 2020-02-06 | disposition home or self-care (01) ==
LOC: WCC 13:25
DX: L97.821 Non-pressure chronic ulcer of other part of left lower leg limited to breakdown of skin (principal); R60.0 Localized edema; I70.242 Atherosclerosis of native arteries of left leg with ulceration of calf; L03.115 Cellulitis of right lower limb; L97.512 Non-pressure chronic ulcer of other part of right foot with fat layer exposed; M19.90 Unspecified osteoarthritis, unspecified site; F32.9 Major depressive disorder, single episode, unspecified; K21.9 Gastro-esophageal reflux disease without esophagitis; Z85.118 Personal history of other malignant neoplasm of bronchus and lung; Z96.643 Presence of artificial hip joint, bilateral; Z90.710 Acquired absence of both cervix and uterus; Z79.01 Long term (current) use of anticoagulants; Z79.899 Other long term (current) drug therapy; Z88.0 Allergy status to penicillin; Z88.8 Allergy status to other drugs, medicaments and biological substances; M79.671 Pain in right foot; Z87.891 Personal history of nicotine dependence
CPT/HCPCS: 87070; 87181; 87205; 97597; G0463

== ENCOUNTER 2020-02-17 12:38 | Outpatient (RCR) | payer MEDICARE ==
[~2020-02-17] VITALS: Ht 167.6 cm; Wt 104.3 kg
[2020-03-03] MEDS ORDERED: Lidocaine 4% Top Soln 50ml TOPIC ONE (13:15)
== END 2020-03-08 | disposition home or self-care (01) ==
LOC: WCC 12:38
DX: L97.821 Non-pressure chronic ulcer of other part of left lower leg limited to breakdown of skin (principal); R60.0 Localized edema; I70.242 Atherosclerosis of native arteries of left leg with ulceration of calf; L03.115 Cellulitis of right lower limb; L97.512 Non-pressure chronic ulcer of other part of right foot with fat layer exposed; M19.90 Unspecified osteoarthritis, unspecified site; F32.9 Major depressive disorder, single episode, unspecified; K21.9 Gastro-esophageal reflux disease without esophagitis; Z85.118 Personal history of other malignant neoplasm of bronchus and lung; Z96.643 Presence of artificial hip joint, bilateral; Z90.710 Acquired absence of both cervix and uterus; Z79.01 Long term (current) use of anticoagulants; Z79.899 Other long term (current) drug therapy; Z88.0 Allergy status to penicillin; Z88.8 Allergy status to other drugs, medicaments and biological substances; M79.671 Pain in right foot
CPT/HCPCS: 11056; G0463

== ENCOUNTER 2020-04-13 13:27 | Outpatient (RCR) | payer MEDICARE ==
[~2020-04-13] VITALS: Ht 167.6 cm; Wt 104.3 kg
[2020-04-15] MEDS ORDERED: Lidocaine 4% Top Soln 50ml TOPIC ONE (12:30)
[2020-04-21] MEDS ORDERED: Lidocaine 4% Top Soln 50ml TOPIC ONE (16:45)
== END 2020-05-08 | disposition home or self-care (01) ==
LOC: WCC 13:27
DX: L97.821 Non-pressure chronic ulcer of other part of left lower leg limited to breakdown of skin (principal); R60.0 Localized edema; I70.242 Atherosclerosis of native arteries of left leg with ulceration of calf; L03.115 Cellulitis of right lower limb; L97.512 Non-pressure chronic ulcer of other part of right foot with fat layer exposed; Z96.643 Presence of artificial hip joint, bilateral; Z90.710 Acquired absence of both cervix and uterus; L03.116 Cellulitis of left lower limb; Z85.118 Personal history of other malignant neoplasm of bronchus and lung; M19.90 Unspecified osteoarthritis, unspecified site; F32.9 Major depressive disorder, single episode, unspecified; K21.9 Gastro-esophageal reflux disease without esophagitis; Z87.891 Personal history of nicotine dependence; Z88.0 Allergy status to penicillin; Z88.8 Allergy status to other drugs, medicaments and biological substances; M79.671 Pain in right foot; Z79.01 Long term (current) use of anticoagulants; Z79.899 Other long term (current) drug therapy
CPT/HCPCS: 29580; 87070; 87181; 87205

== ENCOUNTER 2020-05-11 12:56 | Outpatient (RCR) | payer MEDICARE ==
[~2020-05-11] VITALS: Ht 167.6 cm; Wt 104.3 kg
[2020-05-12] MEDS ORDERED: Lidocaine 4% Top Soln 50ml TOPIC ONE (11:00)
== END 2020-06-07 | disposition home or self-care (01) ==
LOC: WCC 12:56
DX: L97.821 Non-pressure chronic ulcer of other part of left lower leg limited to breakdown of skin (principal); R60.0 Localized edema; I70.242 Atherosclerosis of native arteries of left leg with ulceration of calf; L03.115 Cellulitis of right lower limb; L97.512 Non-pressure chronic ulcer of other part of right foot with fat layer exposed; L03.116 Cellulitis of left lower limb; Z87.891 Personal history of nicotine dependence; Z88.0 Allergy status to penicillin; Z96.643 Presence of artificial hip joint, bilateral; Z90.710 Acquired absence of both cervix and uterus; M19.90 Unspecified osteoarthritis, unspecified site; K21.9 Gastro-esophageal reflux disease without esophagitis; Z85.118 Personal history of other malignant neoplasm of bronchus and lung; F32.9 Major depressive disorder, single episode, unspecified; Z79.01 Long term (current) use of anticoagulants; Z79.899 Other long term (current) drug therapy
CPT/HCPCS: 29580; 87070; 87181; 87205

== ENCOUNTER 2020-06-15 13:31 | Outpatient (RCR) | payer MEDICARE | END 2020-07-08 | disposition home or self-care (01) | LOC: WCC 13:31 | DX: L97.821 Non-pressure chronic ulcer of other part of left lower leg limited to breakdown of skin (principal); R60.0 Localized edema; I70.242 Atherosclerosis of native arteries of left leg with ulceration of calf; L03.115 Cellulitis of right lower limb; L97.512 Non-pressure chronic ulcer of other part of right foot with fat layer exposed; L03.116 Cellulitis of left lower limb; Z96.643 Presence of artificial hip joint, bilateral; Z90.710 Acquired absence of both cervix and uterus; K21.9 Gastro-esophageal reflux disease without esophagitis; M19.90 Unspecified osteoarthritis, unspecified site; Z85.118 Personal history of other malignant neoplasm of bronchus and lung; Z87.891 Personal history of nicotine dependence; Z88.0 Allergy status to penicillin | CPT/HCPCS: 29580; 97602 ==

== ENCOUNTER 2020-07-13 11:17 | Outpatient (RCR) | payer MEDICARE | END 2020-08-08 | disposition home or self-care (01) | LOC: WCC 11:17 | DX: L97.821 Non-pressure chronic ulcer of other part of left lower leg limited to breakdown of skin (principal); R60.0 Localized edema; I70.242 Atherosclerosis of native arteries of left leg with ulceration of calf; L03.115 Cellulitis of right lower limb; L97.512 Non-pressure chronic ulcer of other part of right foot with fat layer exposed; L03.116 Cellulitis of left lower limb; Z90.710 Acquired absence of both cervix and uterus; Z96.643 Presence of artificial hip joint, bilateral; K21.9 Gastro-esophageal reflux disease without esophagitis; Z87.891 Personal history of nicotine dependence; F32.9 Major depressive disorder, single episode, unspecified; Z85.118 Personal history of other malignant neoplasm of bronchus and lung; Z88.0 Allergy status to penicillin; Z88.1 Allergy status to other antibiotic agents | CPT/HCPCS: 11045; 29580; 87070; 87181; 87205; 97597 ==

== ENCOUNTER 2020-08-17 12:59 | Outpatient (RCR) | payer MEDICARE ==
[~2020-08-17] VITALS: Ht 30.5 cm; Wt 0.5 kg
[2020-08-18] MEDS ORDERED: Lidocaine 4% Top Soln 50ml TOPIC ONE (17:00)
== END 2020-09-05 | disposition home or self-care (01) ==
LOC: WCC 12:59
DX: L97.821 Non-pressure chronic ulcer of other part of left lower leg limited to breakdown of skin (principal); R60.0 Localized edema; I70.242 Atherosclerosis of native arteries of left leg with ulceration of calf; L03.115 Cellulitis of right lower limb; L97.512 Non-pressure chronic ulcer of other part of right foot with fat layer exposed; L03.116 Cellulitis of left lower limb; Z90.710 Acquired absence of both cervix and uterus; Z96.643 Presence of artificial hip joint, bilateral; K21.9 Gastro-esophageal reflux disease without esophagitis; Z87.891 Personal history of nicotine dependence; F32.9 Major depressive disorder, single episode, unspecified; Z85.118 Personal history of other malignant neoplasm of bronchus and lung; Z88.0 Allergy status to penicillin; Z88.1 Allergy status to other antibiotic agents
CPT/HCPCS: 11045; 29580; 87070; 87181; 87205; 97597